=== PATIENT | male | born 1985 | race Caucasian/White ===

== ENCOUNTER 2018-01-11 13:20 | Emergency (ER) | payer OTHER, SELFPAY ==
[~2018-01-11] VITALS: Ht 190.5 cm; Wt 111.0 kg
[2018-01-11 13:23] VITALS: BP 138/55
[2018-01-11 15:41] LABS: RAPID INFLUENZA A Negative (Negative); RAPID INFLUENZA B Negative (Negative)
== END 2018-01-11 16:41 | disposition home or self-care (01) ==
LOC: ED 16:05
DX: J00 Acute nasopharyngitis [common cold] (principal)
CPT/HCPCS: 71045; 87400; 93005; 99284

== ENCOUNTER 2018-02-02 13:15 | Emergency (ER) | payer OTHER ==
[~2018-02-02] VITALS: Ht 190.5 cm; Wt 112.3 kg
[2018-02-02] MEDS ORDERED: ALBUTEROL/IPRATROPIUM 2.5MG/0.5MG, 3 ML ONE (13:36)
[2018-02-02 13:48] LABS: BASOPHILS # (AUTO) 0.03 x10^3/uL (0-0.1); BASOPHILS % (AUTO) 0 % (0-1); EOSINOPHILS # (AUTO) 0.15 x10^3/uL (0-0.4); EOSINOPHILS % (AUTO) 2 % (1-7); LYMPHOCYTES % (AUTO) 37 % (22-44); MD NO; MEAN CORPUSCULAR HEMOGLOBIN 28.5 pg (27.5-34.5); MEAN CORPUSCULAR HGB CONC 32.9 g/dL (33.2-36.2); MEAN CORPUSCULAR VOLUME 86.6 fL (81-97); MONOCYTES # (AUTO) 0.45 x10^3/uL (0.2-0.8); MONOCYTES % (AUTO) 6 % (2-9); NEUTROPHILS # (AUTO) 4.41 x10^3/uL (1.8-6.8); NEUTROPHILS % (AUTO) 56 % (42-75); PLATELET COUNT 224 x10^3/uL (130-400); RED BLOOD COUNT 4.73 x10^6/uL (4.38-5.82); RED CELL DISTRIBUTION WIDTH 16.6 % (9.4-14.8)
[2018-02-02 14:00] LABS: ANION GAP 8 mmol/L (5-15); CALCIUM 8.5 mg/dL (8.5-10.1); CHLORIDE 106 mmol/L (98-107)
[2018-02-02] MEDS ORDERED: ALBUTEROL/IPRATROPIUM 2.5MG/0.5MG, 3 ML NPPB ONE (14:00)
[2018-02-02 14:05] LABS: TROPONIN I < 0.015 ng/mL (0.000-0.045)
[2018-02-02] MEDS ORDERED: OMNIPAQUE 350 MG/ML, 100ML BOTTLE ONE (16:44)
[2018-02-02 17:07] VITALS: BP 113/78
== END 2018-02-02 17:27 | disposition home or self-care (01) ==
LOC: ED 13:48
DX: J15.8 Pneumonia due to other specified bacteria (principal); J04.0 Acute laryngitis; B97.89 Other viral agents as the cause of diseases classified elsewhere; J45.909 Unspecified asthma, uncomplicated; F17.200 Nicotine dependence, unspecified, uncomplicated
CPT/HCPCS: 36415; 71045; 71275; 80048; 82040; 83880; 84484; 85025; 85379; 93005; 94640; 99284; J7620; Q9967

== ENCOUNTER 2018-04-27 15:40 | Inpatient (IN) | payer OTHER ==
[~2018-04-27] VITALS: Ht 190.5 cm; Wt 110.8 kg
[2018-04-27] MEDS ORDERED: ALBUTEROL/IPRATROPIUM 2.5MG/0.5MG, 3 ML NPPB SCH (16:00)
--- NOTE | 2018-04-27 16:07 | NUR ---
PT PRESENTED TO ED D/T SOB AND WHEEZING X1 WEEK. PT ALSO STATES FEBRILE "103" OFF AND ON. STATES HAS HOME INHALERS BUT ARENT WORKING. HX OF ASTHMA.
[2018-04-27] MEDS ORDERED: ALBUTEROL/IPRATROPIUM 2.5MG/0.5MG, 3 ML ONE (16:13)
--- NOTE | 2018-04-27 16:14 | NUR ---
RT AT BEDSIDE.
[2018-04-27 16:26] LABS: RAPID INFLUENZA A Negative (Negative); RAPID INFLUENZA B Negative (Negative)
[2018-04-27] MEDS ORDERED: CEFTRIAXONE PMX 2GM/50ML 50 ML ONE (16:49)
--- NOTE | 2018-04-27 16:53 | NUR ---
ABX BEING ADMINISTERED PER EMAR. 2/2 BLOOD CULTURES DRAWN. VSS.
[2018-04-27] MEDS ORDERED: AZITHROMYCIN 500 MG in SODIUM CHLORIDE 0.9% 250 ML IV ONE (17:00)
[2018-04-27] MEDS ORDERED: CEFTRIAXONE PMX 2GM/50ML 50 ML IV ONE (17:00)
[2018-04-27 17:01] LABS: BASOPHILS # (AUTO) 0.01 x10^3/uL (0-0.1); BASOPHILS % (AUTO) 0 % (0-1); EOSINOPHILS # (AUTO) 0.09 x10^3/uL (0-0.4); EOSINOPHILS % (AUTO) 1 % (1-7); LYMPHOCYTES % (AUTO) 17 % (22-44); MD NO; MEAN CORPUSCULAR HEMOGLOBIN 28.8 pg (27.5-34.5); MEAN CORPUSCULAR HGB CONC 32.3 g/dL (33.2-36.2); MEAN CORPUSCULAR VOLUME 89.3 fL (81-97); MEAN PLATELET VOLUME 8.4 fL (7.4-10.4); MONOCYTES % (AUTO) 6 % (2-9); NEUTROPHILS # (AUTO) 4.77 x10^3/uL (1.8-6.8); NEUTROPHILS % (AUTO) 75 % (42-75); PLATELET COUNT 206 x10^3/uL (130-400); RED BLOOD COUNT 4.62 x10^6/uL (4.38-5.82); RED CELL DISTRIBUTION WIDTH 15.5 % (9.4-14.8)
[2018-04-27 17:13] LABS: ALANINE AMINOTRANSFERASE 24 U/L (12-78); ALBUMIN 3.5 g/dL (3.4-5.0); ANION GAP 11 mmol/L (5-15); CALCIUM 8.4 mg/dL (8.5-10.1); CHLORIDE 110 mmol/L (98-107); CREATININE 0.98 mg/dL (0.7-1.3)
[2018-04-27 17:15] LABS: ALKALINE PHOSPHATASE 53 U/L (45-117); BILIRUBIN,TOTAL 0.3 mg/dL (0.2-1.0); TOTAL PROTEIN 7.1 g/dL (6.4-8.2)
[2018-04-27] MEDS ORDERED: BENZONATATE 100 MG CAPSULE ONE (17:28)
[2018-04-27] MEDS ORDERED: SODIUM CHLORIDE 0.9% 1,000ML IVBOLUS ONE (17:30)
[2018-04-27] MEDS ORDERED: BENZONATATE 100 MG CAPSULE PO ONE (17:30)
[2018-04-27] MEDS: NS + 20MEQ KCL 1,000 ML IV SCH (18:18)
[2018-04-27] MEDS ORDERED: POLYETHYLENE GLYCOL 17 GM PACKET PO PRN (18:30)
[2018-04-27] MEDS ORDERED: CEFTRIAXONE PMX 1GM/50ML 50 ML IV SCH (18:30)
[2018-04-27] MEDS ORDERED: ONDANSETRON ODT 4 MG PO PRN (18:30)
[2018-04-27] MEDS ORDERED: BISACODYL 10 MG SUPP PR PRN (18:30)
--- NOTE | 2018-04-27 18:33 | NUR ---
OKAY TO ORDER PT DIET TRAY. PT RESTING ON GURNERY WATCHING TV. NO COMPLAINTS OF PAIN OR DISCOMFORT AT THIS TIME. FLUIDS BEING ADMINISTERED PER EMAR. AWAITING BED ASSIGNMENT.
[2018-04-27] MEDS ORDERED: OMEPRAZOLE 20 MG CAPSULE.DR ONE (18:35)
[2018-04-27] MEDS ORDERED: NICOTINE 7 MG/24 HR PATCH.TD24 ONE (18:35)
[2018-04-27] MEDS ORDERED: NS + 20MEQ KCL 1,000 ML IV ONE (18:35)
[2018-04-27] MEDS: NICOTINE 7 MG/24 HR PATCH.TD24 TD SCH ×2 (18:37→22:52)
[2018-04-27] MEDS: OMEPRAZOLE 20 MG CAPSULE.DR PO SCH (18:38)
--- NOTE | 2018-04-27 19:09 | NUR ---
REPORT TO LION [facility].
--- NOTE | 2018-04-27 20:41 | NUR ---
IVF STARTED AT THIS TIME.
[2018-04-27] MEDS ORDERED: ACETAMINOPHEN 325 MG TABLET ONE (20:43)
[2018-04-27] MEDS: ACETAMINOPHEN 325 MG TABLET PO PRN (21:02)
--- NOTE | 2018-04-27 21:05 | NUR ---
REPORT CALLED TO RICHARD PEOPLES.
[2018-04-27 21:55] VITALS: BP 117/74
[2018-04-27] MEDS ORDERED: ACETAMINOPHEN 500 MG TABLET PO PRN (22:30)
[2018-04-27] MEDS: GUAIFENESIN/DM 200-20MG, 10ML UDC PO PRN (22:51)
[2018-04-27] MEDS: TEMAZEPAM 15 MG CAPSULE PO PRN (22:52)
[2018-04-27] MEDS ORDERED: ACETAMINOPHEN 325 MG TABLET PO PRN (23:00)
[2018-04-27] MEDS: DOXYCYCLINE 100 MG in DEXTROSE 5% 250 ML IV SCH (23:57)
[2018-04-28 01:30] VITALS: BP 125/71
[2018-04-28 04:46] LABS: BASOPHILS # (AUTO) 0.01 x10^3/uL (0-0.1); BASOPHILS % (AUTO) 0 % (0-1); EOSINOPHILS # (AUTO) 0.05 x10^3/uL (0-0.4); EOSINOPHILS % (AUTO) 1 % (1-7); LYMPHOCYTES # (AUTO) 1.09 x10^3/uL (1-3.4); LYMPHOCYTES % (AUTO) 21 % (22-44); MD NO; MEAN CORPUSCULAR HEMOGLOBIN 29.2 pg (27.5-34.5); MEAN CORPUSCULAR HGB CONC 32.6 g/dL (33.2-36.2); MEAN CORPUSCULAR VOLUME 89.5 fL (81-97); MEAN PLATELET VOLUME 8.6 fL (7.4-10.4); MONOCYTES # (AUTO) 0.53 x10^3/uL (0.2-0.8); MONOCYTES % (AUTO) 10 % (2-9); NEUTROPHILS % (AUTO) 68 % (42-75); PLATELET COUNT 199 x10^3/uL (130-400); RED BLOOD COUNT 4.31 x10^6/uL (4.38-5.82); RED CELL DISTRIBUTION WIDTH 15.7 % (9.4-14.8)
[2018-04-28 04:56] LABS: CHLORIDE 107 mmol/L (98-107)
[2018-04-28] MEDS ORDERED: CEFTRIAXONE PMX 1GM/50ML 50 ML IV SCH (05:00)
[2018-04-28 05:02] LABS: ALANINE AMINOTRANSFERASE 20 U/L (12-78); ALBUMIN 3.2 g/dL (3.4-5.0); ALKALINE PHOSPHATASE 47 U/L (45-117); ANION GAP 8 mmol/L (5-15); BILIRUBIN,TOTAL 0.3 mg/dL (0.2-1.0); CALCIUM 7.6 mg/dL (8.5-10.1); CREATININE 0.97 mg/dL (0.7-1.3); TOTAL PROTEIN 6.3 g/dL (6.4-8.2)
[2018-04-28] MEDS: OMEPRAZOLE 20 MG CAPSULE.DR PO SCH (05:55)
[2018-04-28] MEDS: GUAIFENESIN/DM 200-20MG, 10ML UDC PO PRN (05:55)
[2018-04-28] MEDS: NS + 20MEQ KCL 1,000 ML IV SCH ×2 (06:39→15:07)
[2018-04-28 08:00] VITALS: BP 129/77
[2018-04-28] MEDS: SENNA/DOCUSATE TABLET PO SCH (08:50)
[2018-04-28] MEDS: GUAIFENESIN 200 MG TABLET PO SCH ×3 (11:07→20:29)
[2018-04-28] MEDS: PANTOPRAZOLE 40 MG IV IVPush SCH ×2 (11:07→23:47)
[2018-04-28] MEDS: DOXYCYCLINE 100 MG in DEXTROSE 5% 250 ML IV SCH ×2 (11:07→23:47)
[2018-04-28] MEDS: ACETAMINOPHEN 325 MG TABLET PO PRN ×2 (11:12→17:55)
[2018-04-28 13:53] VITALS: BP 107/71
[2018-04-28 19:58] VITALS: BP 114/76
[2018-04-28] MEDS: TEMAZEPAM 15 MG CAPSULE PO PRN (23:47)
[2018-04-29] MEDS: ACETAMINOPHEN 325 MG TABLET PO PRN ×2 (00:05→08:21)
[2018-04-29 02:41] VITALS: BP 120/77
[2018-04-29] MEDS: NS + 20MEQ KCL 1,000 ML IV SCH ×2 (04:32→14:00)
[2018-04-29 05:12] LABS: BASOPHILS # (AUTO) 0.02 x10^3/uL (0-0.1); BASOPHILS % (AUTO) 1 % (0-1); EOSINOPHILS # (AUTO) 0.05 x10^3/uL (0-0.4); EOSINOPHILS % (AUTO) 1 % (1-7); LYMPHOCYTES % (AUTO) 27 % (22-44); MD NO; MEAN CORPUSCULAR HEMOGLOBIN 30.3 pg (27.5-34.5); MEAN CORPUSCULAR HGB CONC 34.3 g/dL (33.2-36.2); MEAN CORPUSCULAR VOLUME 88.2 fL (81-97); MEAN PLATELET VOLUME 8.3 fL (7.4-10.4); MONOCYTES # (AUTO) 0.47 x10^3/uL (0.2-0.8); MONOCYTES % (AUTO) 13 % (2-9); NEUTROPHILS # (AUTO) 2.18 x10^3/uL (1.8-6.8); NEUTROPHILS % (AUTO) 59 % (42-75); PLATELET COUNT 188 x10^3/uL (130-400); RED BLOOD COUNT 4.32 x10^6/uL (4.38-5.82); RED CELL DISTRIBUTION WIDTH 15.3 % (9.4-14.8)
[2018-04-29 05:13] LABS: ALBUMIN 3.1 g/dL (3.4-5.0); ANION GAP 4 mmol/L (5-15); CALCIUM 8.1 mg/dL (8.5-10.1); CHLORIDE 109 mmol/L (98-107)
[2018-04-29 05:16] LABS: ALANINE AMINOTRANSFERASE 22 U/L (12-78); ALKALINE PHOSPHATASE 48 U/L (45-117); BILIRUBIN,TOTAL 0.3 mg/dL (0.2-1.0); CREATININE 0.92 mg/dL (0.7-1.3); TOTAL PROTEIN 6.7 g/dL (6.4-8.2)
[2018-04-29 07:35] VITALS: BP 119/73
[2018-04-29] MEDS: GUAIFENESIN 200 MG TABLET PO SCH ×3 (08:20→16:14)
[2018-04-29] MEDS: SENNA/DOCUSATE TABLET PO SCH (08:20)
[2018-04-29] MEDS: PANTOPRAZOLE 40 MG IV IVPush SCH (11:12)
[2018-04-29] MEDS ORDERED: CEFTRIAXONE PMX 1GM/50ML 50 ML IV SCH (11:30)
[2018-04-29] MEDS: DOXYCYCLINE 100 MG in DEXTROSE 5% 250 ML IV SCH (12:28)
[2018-04-29 13:26] VITALS: BP 107/74
[2018-04-29] MEDS ORDERED: GUAI200T3 PO (14:39)
[2018-04-29] MEDS ORDERED: CEFD300C37 PO (14:39)
[2018-04-29] MEDS ORDERED: PANT40TA5 PO (14:39)
[2018-04-29] MEDS ORDERED: DOXY100T PO (14:39)
== END 2018-04-29 16:40 | disposition home or self-care (01) | DRG 871 ==
LOC: ED 18:02 → EDIP 18:18 → 3NW 21:46 → DCLOUNGE 04-29 16:35
PROVIDERS: ADMIT Family Medicine; ATTEND Family Medicine
DX: A41.9 Sepsis, unspecified organism (principal); J18.1 Lobar pneumonia, unspecified organism; D83.9 Common variable immunodeficiency, unspecified; D64.9 Anemia, unspecified; E87.6 Hypokalemia; F17.200 Nicotine dependence, unspecified, uncomplicated; J45.909 Unspecified asthma, uncomplicated; K20.0 Eosinophilic esophagitis; K21.9 Gastro-esophageal reflux disease without esophagitis; R65.20 Severe sepsis without septic shock; Z82.5 Family history of asthma and other chronic lower respiratory diseases
CPT/HCPCS: 36415; 71046; 80053; 83605; 83735; 84100; 84145; 85025; 87040; 87070; 87205; 87400; 87806; 93005; 94640; 96365; 96367; 99285; G0378; J0456; J0696; J3480; J7060; C9113; G0475; J7030; J7050